=== PATIENT | male | born 1960 | race Caucasian/White ===

== ENCOUNTER 2019-02-12 08:01 | Day surgery (SDC) | payer BC ==
[~2019-02-12] VITALS: Ht 185.4 cm; Wt 104.3 kg
[2019-02-12] MEDS ORDERED: TIZA4CAP6 PO (08:56)
[2019-02-12] MEDS ORDERED: GLIP10TA10 PO (08:56)
[2019-02-12] MEDS ORDERED: METF-414 PO (08:56)
[2019-02-12] MEDS ORDERED: ORPH100T2 PO (08:56)
[2019-02-12] MEDS ORDERED: ASPI-1158 PO (08:56)
[2019-02-12] MEDS ORDERED: NAPR-1164 PO (08:56)
[2019-02-12] MEDS ORDERED: ATOR20TA PO (08:56)
[2019-02-12] MEDS ORDERED: NORT50CA PO (08:56)
[2019-02-12] MEDS ORDERED: IOHEXOL-300 100 ML BOTTLE ONE (10:50)
[2019-02-12] MEDS ORDERED: LIDOCAINE HCL 1% 20ML VIAL (Pyxis) INJ ONE (10:51)
[2019-02-12] MEDS ORDERED: MIDAZOLAM HCL 2 MG/2 ML VIAL ONE (11:06)
[2019-02-12] MEDS ORDERED: FENTANYL CITRATE/PF 50MCG/ML 2ML VIAL ONE (11:06)
[2019-02-12] MEDS ORDERED: ONDANSETRON HCL 4MG/2ML INJ IV PRN (11:30)
[2019-02-12] MEDS ORDERED: ACETAMINOPHEN 325MG TABLET PO PRN (11:30)
[2019-02-12] MEDS ORDERED: NITROGLYCERIN 50MCG/ML 10ML VIAL (CATH LAB) IV ONE (14:43)
[2019-02-12] MEDS ORDERED: NICARDIPINE 100MCG/ML 10ML VIAL (CATH LAB) IV ONE (14:43)
[2019-02-12] MEDS ORDERED: HEPARIN SODIUM 1,000 UNIT/1ML VIAL IV ONE (14:43)
== END 2019-02-12 18:05 | disposition home or self-care (01) ==
LOC: CCL 08:01
PROVIDERS: ATTEND Specialist
DX: R07.9 Chest pain, unspecified (principal); I35.0 Nonrheumatic aortic (valve) stenosis; I10 Essential (primary) hypertension; E78.5 Hyperlipidemia, unspecified; E11.9 Type 2 diabetes mellitus without complications; J44.9 Chronic obstructive pulmonary disease, unspecified; N40.0 Benign prostatic hyperplasia without lower urinary tract symptoms; E66.9 Obesity, unspecified; I20.0 Unstable angina; I49.3 Ventricular premature depolarization; I47.1 Supraventricular tachycardia; Z87.891 Personal history of nicotine dependence; Z79.82 Long term (current) use of aspirin; Z79.84 Long term (current) use of oral hypoglycemic drugs; Z79.899 Other long term (current) drug therapy
CPT/HCPCS: 82962; 93005; 93458; 99152; C1769; C1887; C1893; J1644; J2250; J3010; J3490; Q9967